=== PATIENT | female | born 1930 | race Caucasian/White ===

== ENCOUNTER 2016-11-11 15:08 | Emergency (ER) | payer OTHER, MEDICARE, BC ==
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
[~2016-11-11 15:08] MED LIST: AMLODIPINE BESYL5 MG PO; ATIVAN PO; BIOTIN800 MCG PO; CATAPRES0.1 MG PO; CELEXA20 MG PO; CENTRUM PO; CO Q-10200 MG PO; DEXILANT60 MG PO; ECOTRIN325 MG PO; ERYTHROMYCIN O3.5 GM OD; FISH OIL 1,0001 CAP PO; FLAGYL PO; FLAX SEED OIL1000 M1 PO; FLAXSEED OIL; HYDROCODON-ACE1 EAC7 PO; LEVAQUIN PO; LIPITOR20 MG PO; LORTAB 5/500 TA1 TA1 PO; METAMUCIL PACKE1 PK1 PO; MIRALAX17 GM DOB; MIRALAX17 GM PO; NORVASC PO; OMEPRAZOLE40 MG PO; OXYCODONE-APAP1 T11 PO; PLAVIX PO; PREDNISONE PO; PREMARIN0.625 MG PO; PRINIVIL20 M1 PO; PROBIOTIC1 EAC1 PO; PROTONIX; PROTONIX PO; TYLENOL #3 PO; VIT C PO; VIT D PO; VIT E PO; VITAMIN B12; VITAMIN C1000 M1 PO; VITAMIN D-32000 UNI1 PO; VITAMIN D31000 UNI1 PO; XANAX XR0.5 MG PO; XANAX1 MG PO
== END 2016-11-11 19:45 | disposition home or self-care (01) ==
LOC: CED 15:08
DX: S23.3XXA Sprain of ligaments of thoracic spine, initial encounter (principal); S33.5XXA Sprain of ligaments of lumbar spine, initial encounter; I10 Essential (primary) hypertension; Z79.899 Other long term (current) drug therapy; V89.2XXA Person injured in unspecified motor-vehicle accident, traffic, initial encounter; Y92.410 Unspecified street and highway as the place of occurrence of the external cause
CPT/HCPCS: 71020; 72040; 72072; 99284

== ENCOUNTER → 2016-12-15 | Outpatient (CLI) | payer OTHER ==
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
== END | disposition home or self-care (01) ==
LOC: CCAT 12:44
DX: R51 Headache (principal); V89.2XXA Person injured in unspecified motor-vehicle accident, traffic, initial encounter
CPT/HCPCS: 70450